=== PATIENT | male | born 1985 | race Caucasian/White ===

== ENCOUNTER 2024-04-30 00:10 | Emergency (ER) | payer SELFPAY ==
[~2024-04-30] VITALS: Ht 172.7 cm; Wt 87.0 kg
[2024-04-30 00:12] VITALS: BP 144/99; PULSE 84; TEMP 98.6; O2SAT 99
[2024-04-30] MEDS: LIDOCAINE HCL 1% 20ML VIAL INFIL ONE (02:00)
[2024-04-30] MEDS: TETANUS, DIPHTHERIA, PERTUSSIS VAC/PF 0.5ML (>10YR OLD) IM ONE (02:00)
[2024-04-30] MEDS ORDERED: ACET-2708 MT (02:16)
[2024-04-30] MEDS ORDERED: AMOX50SU15 MT (02:16)
[2024-04-30 02:30] VITALS: RESP 16
== END 2024-04-30 02:35 | disposition home or self-care (01) ==
LOC: ER 00:10
DX: S61.212A Laceration without foreign body of right middle finger without damage to nail, initial encounter (principal); W26.0XXA Contact with knife, initial encounter; Y93.89 Activity, other specified; Y92.89 Other specified places as the place of occurrence of the external cause; Y99.8 Other external cause status
CPT/HCPCS: 90715; 12002; 90471; 99283; J3490; Z7610 ×3